=== PATIENT | female | born 1990 ===

== ENCOUNTER 2017-01-22 17:32 | Emergency (ER) | payer MEDICAID, OTHER ==
[2017-01-22 17:37] VITALS: BP 148/87; PULSE 92; RESP 16; TEMP 99.4; O2SAT 100
--- NOTE | 2017-01-22 18:12 | ED PDOC ---
Upper Extremity Pain/Injury Time Seen by Provider: 01/22/17 17:47 Chief Complaint (Nursing): Upper Extremity Problem/Injury Chief Complaint (Provider): Left Shoulder Pain History Per: Patient History/Exam Limitations: no limitations Onset/Duration Of Symptoms: Days (x 2 weeks), Worse Since Current Symptoms Are (Timing): Still Present Additional Complaint(s): Estefani is a 26 y/o female with no past medical history who presents to the ED c/o left shoulder pain that started 2 weeks ago and has been worsening since onset. Patient reports pain is radiating down her arm and hand, but denies numbness or weakness. She also denies trauma or injury. She took amoxicillin to see if it would help today. Patient denies headache or neck pain, but admits to b/l breast pain ongoing for months. Her pmd told her it was likely due to her large breasts and that she may need surgery for improvement. PMD: Dr. Riojas Past Medical History Reviewed: Historical Data, Nursing Documentation, Vital Signs Vital Signs: Last Vital Signs Temp 99.4 F 01/22/17 17:34 Pulse 92 H 01/22/17 17:34 Resp 16 01/22/17 17:34 BP 148/87 01/22/17 17:34 Pulse Ox 100 01/22/17 17:34 - Medical History PMH: No Chronic Diseases - Surgical History Surgical History: Appendectomy - Family History Family History: States: Hypertension - Social History Current smoker - smoking cessation education provided: No Ex-Smoker (has not smoked in the last 12 months): No Alcohol: None Drugs: Denies - Home Medications Home Medications: Ambulatory Orders Medication Instructions Recorded Naproxen [Naprosyn] 1 tab PO BID PRN #30 tab 01/22/17 - Allergies Allergies/Adverse Reactions: Allergies Allergy/AdvReac Type Severity Reaction Status Date / Time No Known Allergies Allergy Verified 01/22/17 17:34 Review of Systems ROS Statement: Except As Marked, All Systems Reviewed And Found Negative Constitutional: Positive for: Fever Cardiovascular: Positive for: Chest Pain (breasts b/l) Respiratory: Positive for: Cough. Negative for: Shortness of Breath Musculoskeletal: Positive for: Shoulder Pain (left with radiation to arm and hand). Negative for: Neck Pain Neurological: Negative for: Weakness, Numbness, Headache Physical Exam - Reviewed Nursing Documentation Reviewed: Yes Vital Signs Reviewed: Yes - Physical Exam Appears: Positive for: Non-toxic, No Acute Distress Head Exam: Positive for: ATRAUMATIC, NORMOCEPHALIC Skin: Positive for: Warm, Dry Eye Exam: Positive for: EOMI, PERRL ENT: Positive for: Pharynx Is (clear) Neck: Positive for: Painless ROM, Supple (with NO tenderness) Cardiovascular/Chest: Positive for: Regular Rate, Rhythm, Chest Non Tender. Negative for: Murmur Respiratory: Positive for: Normal Breath Sounds. Negative for: Wheezing Gastrointestinal/Abdominal: Positive for: Soft. Negative for: Tenderness Extremity: Positive for: Normal ROM, Other (LEFT shoulder: tenderness to anterior and lateral shoulder, 5/5 strength in all movements of LEFT hand, light touch intact, 2+ radial pulse, <2sec CR). Negative for: Pedal Edema, Deformity Lymphatic: Negative for: Adenopathy Neurologic/Psych: Positive for: Alert. Negative for: Motor/Sensory Deficits - ECG O2 Sat by Pulse Oximetry: 100 (RA) Pulse Ox Interpretation: Normal Medical Decision Making Medical Decision Making: Time: 17:57 Initial Impression: Left shoulder pain, breast pain, and URI symptoms; Differentials include but not limited to bronchitis, URI, pneumonia, shoulder strain, cervical ridiculopathy Initial Plan: --EKG --Urine Dipstick --Chest XR --XR Cervical Spine --XR Left Shoulder Scribe Attestation: Documented by Bhargav Jiménez, acting as a scribe for Olga Cheatham MD Provider Scribe Attestation: All medical record entries made by the Scribe were at my direction and personally dictated by me. I have reviewed the chart and agree that the record accurately reflects my personal performance of the history, physical exam, medical decision making, and the department course for this patient. I have also personally directed, reviewed, and agree with the discharge instructions and disposition. Disposition - Clinical Impression Clinical Impression: Shoulder pain, Breast pain, Chest pain Counseled Patient/Family Regarding: Studies Performed, Diagnosis, Need For Followup, Rx Given - Disposition Referrals: Shaik Riojas MD [Medical Doctor] - 01/24/17 Disposition: Routine/Home Disposition Time: 19:00 Condition: STABLE Prescriptions: Naproxen [Naprosyn] 1 tab PO BID PRN #30 tab PRN Reason: Pain Instructions: Shoulder Pain (ED), Noncardiac Chest Pain (ED) Forms: [facility] ED School/Work Excuse
--- NOTE | 2017-01-23 08:18 | RAD ---
PROCEDURE: Cervical Spine Radiographs. HISTORY: Pain. COMPARISON: None. FINDINGS: BONES: Straightened curvature or fracture. The odontoid process appears intact. DISC SPACES: Normal. SOFT TISSUES: Normal. No prevertebral soft tissue swelling. OTHER FINDINGS: None. IMPRESSION: Straightened curvature without fracture or spondylolisthesis identified.
--- NOTE | 2017-01-23 08:19 | RAD ---
HISTORY: chest pain COMPARISON: No prior. TECHNIQUE: Chest PA and lateral FINDINGS: LUNGS: No active pulmonary disease. PLEURA: No significant pleural effusion identified. No pneumothorax apparent. CARDIOVASCULAR: Cardiac size appears upper limits of normal. This could be a function of technical magnification. No pulmonary vascular derangement. OSSEOUS STRUCTURES: No significant abnormalities. VISUALIZED UPPER ABDOMEN: Normal. OTHER FINDINGS: None. IMPRESSION: Upper limits normal cardiac silhouette. No definite pulmonary disease appreciable. No pulmonary vascular derangement identified.
--- NOTE | 2017-01-23 08:20 | RAD ---
PROCEDURE: Radiographs of the Left Shoulder HISTORY: shoulder pain COMPARISON: No prior. FINDINGS: BONES: No acute fracture or destructive bony lesion identified. JOINTS: Normal. Glenohumeral and acromioclavicular joints preserved. No osteoarthritis. SOFT TISSUES: Normal. OTHER FINDINGS: None. IMPRESSION: Unremarkable radiographs of the left shoulder.
--- NOTE | 2017-01-23 17:34 | CARD ---
APPROVED REPORT EKG Measurement Heart [id number] <Conclusion> Normal sinus rhythm Normal ECG
== END 2017-01-22 20:00 | disposition home or self-care (01) ==
LOC: H.ER 17:32
DX: M25.512 Pain in left shoulder (principal); R07.89 Other chest pain; N64.4 Mastodynia